=== PATIENT | female | born 1985 | race Caucasian/White ===

== ENCOUNTER → 2016-12-06 | Outpatient (CLI) | payer OTHER ==
--- NOTE | 2016-12-06 15:56 | US ---
December 06, [address] Morales, Thank you for requesting consultation and a ultrasound to evaluate anatomy for your patient, Mrs. Navas. As you know, Felipa is a 31 year old G 1, P 0 with a hughes da ting 20 w 4 d; ALAYNA of 04/24/17 by 6 week ultrasound. Her is complicated by migraine headac hes. She was headache free early on in the . She has had some mild headaches currently. S he is not on any headache prophylaxis protocols currently. She had reassuring NIPT and PreParent scr eening.. ULTRASOUND Number of fetuses: 1 Placental location: Anterior; no evidence of previa Placental cord insertion: Intraplacental presentation: Cephalic Cervix: 3.5 cm viewed transabdominally Maximum Vertical Pocket: 4.2 cm The adnexa were evaluated. No pathology was seen. Right ovary is visualized and seen as normal. It measures 2.5 x 1.6 x 2.5 cm.. Left ovary is visualized and seen as normal. It measures 3.4 x 1.3 x 2.3 cm.. MEASUREMENTS: Biparietal diameter: 47 mm 20 weeks, 2 days Head circumference: 177 mm 20 weeks, 2 days Abdominal circumference: 149 mm 20 weeks, 2 days Femur length: 30 mm 19 weeks, 2 days Humerus length: 30 mm 20 weeks, 0 days Transcerebellar diameter: 21 mm 20 weeks, 0 days Average ultrasound age: 20 weeks, 1 days Estimated weight: 314 gm weight percentile: 28% ANATOMY Supratentorial brain: Normal including views of the falx, cavum septum pellucidum and choroids Lateral Ventricle: Normal, measuring 6.8 mm Posterior fossa: Normal including the cerebellum and cisterna magna Spine: Normal Nuchal fold: 5.1 mm normal Face: Normal views of the lip and nose area Profile: Normal Palate: Normal appearance of the alveolar ridge Heart: Normal four chamber view and the outflow tracts are seen appropriately oriented and crossing. Normal appearance of the SVC/IVC, 3VV, tracheal view, aortic arch and ductal arch Heart Rate 152 bpm Diaphragm: Normal appearance without overt abnormality detected Stomach: Normal Umbilical cord insertion: Normal Right kidney: Normal Left kidney: Normal Bladder: Normal Number of cord vessels: Three Upper extremities: Normal Lower extremities: Normal Gender: Male IMPRESSION: 1. Intrauterine at 20 w 1 d, ultrasound is 04/24/17 with her established ALAYNA of 04/24/17. 2. Normal anatomical survey. 3. Cervical length is normal at 3.5 cm without evidence of insufficiency. 4. Migraines RECOMMENDATIONS: I was pleased to review today's ultrasound with your patient and her spouse. I reassured them that t he baby is growing appropriately with normal amniotic fluid volume. Our detailed review of the anatomy did not reveal any overt abnormalities. We reviewed headache prophylaxis and fluid hydration. If she is normotensive with a severe migraine lasting for days, she may safely take a single dose of a triptan to "break the cycle." If this is a progressive problem, then consultation with her neurologist is recommended. Future ultrasound and consultation is left to your clinical discretion. Thank you for allowing us the opportunity to evaluate your patient. Should you have any further ques tions or concerns please do not hesitate to contact me. Approximately 15 minutes were spent with the patient and 10 minutes were spent in face to face consu ltation. Aissatou Dixon MD Dental Surgeon Maternal Medicine Diagnosis Department of Obstetrics & Gynecology [facility]
--- NOTE | 2016-12-07 17:50 | US ---
Complete Obstetric Ultrasound dated December 06, 2016 Indication: Check growth and anatomy. The estimated gestational age by LMP is 20 weeks 1 day yieldin g an EDC of April 24, 2017. Comparison: October 14, 2016 Findings: Number: 1 Presentation: Vertex Placental location: Anterior. No previa Cervix: 3.5 cm transabdominally. HR: 152 bpm MVP: 4.2 cm Biometry: Biparietal diameter: 4.7 cm 20 weeks 2 days Head circumference: 17.7 cm 20 weeks 2 days Abdominal circumference: 14.9 cm 20 weeks 2 days Femur length: 3 cm 19 weeks 2 days Humerus length: 3 cm 20 weeks 0 days HC/AC: 1.19 (1.09 - 1.26) FL/BPD: 64% FL/AC: 20% Average ultrasound age: 20 weeks 1 day EDC based on today's average ultrasound age: April 24, 2017 Estimated weight is 314 +/- 46 gms. The estimated weight is at the 28 % based on previous dating. ANATOMY SURVEY: Supratentorial brain: Normal Posterior fossa: Normal Spine: Normal Nose and lips: Normal Facial profile: Normal Heart: Four chamber heart. Intact interventricular septum. Cardiac outflow tracts: Normal Stomach: Normal Umbilical cord insertion: Normal Kidneys: Normal, no pyelectasis Bladder: Normal Number of cord vessels: Three Upper extremities: Normal Lower extremities: Normal. No clubbing. Impression: 1. Living hughes . Size concordant with dates. The estimated gestational age by biometry is 20 weeks 1 day yielding an EDC of April 24, 2017. 2. Unremarkable anatomy. No anomalies detected. 3. Please see additional consultation by Dr. Aissatou Dixon.
== END ==
LOC: FIMAGING 14:24
PROVIDERS: ATTEND Obstetrics & Gynecology
DX: Z36 Encounter for antenatal screening of mother (principal); Z3A.20 20 weeks gestation of pregnancy

== ENCOUNTER 2017-05-02 11:40 | Inpatient (IN) | payer OTHER ==
[2017-05-02] MEDS ORDERED: OXYTOCIN/RINGERS LACTATE 1,000 ML IV PRN (13:12)
[2017-05-02] MEDS ORDERED: LR 1,000 ML IV PRN (13:12)
[2017-05-02] MEDS ORDERED: OLIVE OIL 118 ML BTL MISC PRN (13:12)
[2017-05-02] MEDS ORDERED: EPSOM SALT 454 GM TP PRN (13:12)
[2017-05-02] MEDS ORDERED: TERBUTALINE SULFATE 1 MG/ML VIAL IV PRN (13:12)
[2017-05-02 14:41] LABS: % IMMATURE GRANULYOCYTES 0.9 % (0.0-1.1); ADD DIFF? NO; ADD MORPH? NO; ADD SCAN? NO; ATYPICAL LYMPHOCYTE FLAG 0 (0-99); FRAGMENT RBC FLAG 10 (0-99); HEMATOCRIT 37.5 % (38.0-47.0); LEFT SHIFT FLG 10 (0-99); LIPEMIA HEMOLYSIS FLAG 90 (0-99); MEAN CELL HEMOGLOBIN 33.4 pg (27.9-34.1); MEAN CELL HEMOGLOBIN CONCENTR. 34.7 g/dL (32.4-36.7); MEAN CELL VOLUME 96.4 fL (81.5-99.8); MEAN PLATELET VOLUME 9.9 fL (8.7-11.7); PLATELET CLUMPS FLAG 0 (0-99); PLATELET COUNT 294 10^3/uL (150-400); RED BLOOD CELL COUNT 3.89 10^6/uL (4.18-5.33); RED CELL DISTRIBUTION WIDTH 13.3 % (11.5-15.2)
[2017-05-02] MEDS ORDERED: LR 500 ML IV PRN (19:05)
[2017-05-02] MEDS ORDERED: CALCIUM CARBONATE 500 MG CHEWABLE TAB PO PRN (19:13)
[2017-05-02] MEDS ORDERED: ACETAMINOPHEN 325 MG TAB PO PRN (19:13)
[2017-05-02] MEDS ORDERED: ZOLPIDEM TARTRATE 5 MG TAB PO PRN (19:13)
[2017-05-02] MEDS ORDERED: OXYTOCIN/RINGERS LACTATE 500 ML IV SCH (19:30)
--- NOTE | 2017-05-02 19:43 | GHP ---
[f rep st] PREOP HISTORY AND PHYSICAL DATE OF ADMISSION: 05/02/2017 CHIEF COMPLAINT: Oligohydramnios at 41-1/7 weeks' gestation. HPI: The patient is a 31-year-old G1, P0 female, who is at 41-1/7 weeks' gestation dated by a 6-week ultrasound, who presents to labor and delivery for induction of labor secondary to oligohydramnios that diagnosed on office visit today when she was undergoing her routine nonstress testing and showed oligohydramnios with her KARRI of 3. PAST MEDICAL HISTORY: Significant for migraines. PAST SURGICAL HISTORY: Negative. OB HISTORY: This is her first . CHIEF RADIATION THERAPIST HISTORY: Negative. FAMILY HISTORY: Noncontributory. ALLERGIES: Solu-Medrol and MRI contrast. PHYSICAL EXAMINATION: VITAL SIGNS: Her blood pressure is 133/74, pulse is 88, respiratory rate is 20, temperature is 37.3. GENERAL: She is in no apparent distress. ABDOMEN: Gravid, nontender. Ultrasound reveals vertex fetus. Her cervical exam was 1/50/and -2. Yin catheter was placed without complications. heart tones in the 130s with moderate variability and positive accelerations. LABS: Significant for blood type A-negative. Antibody screen negative. Rubella immune. RPR nonreactive. Hepatitis B surface antigen negative, HIV negative, gonorrhea and chlamydia negative. GBS was negative on 03/29/2017. ASSESSMENT: This is a 31-year-old G1, P0 female, who is at 41-1/7 weeks' gestation with oligohydramnios. Recommend proceeding to induction of labor secondary to oligohydramnios and potential increased risk of stillbirth with oligohydramnios. PLAN: I am beginning Pitocin at 10 p.m. and discussed with the patient we will probably plan on rupture of membranes between 2-3 a.m. All questions were answered and the patient agrees with this plan. /[id number]/MODL MTDD
[2017-05-03] MEDS ORDERED: OLIVE OIL 118 ML BTL ONE (02:03)
[2017-05-03] MEDS ORDERED: LIDOCAINE 1% 300 MG/30 ML SDV ONE (02:03)
[2017-05-03] MEDS ORDERED: OXYTOCIN 10 UNIT/ML VIAL ONE (02:04)
[2017-05-03] MEDS ORDERED: AMMONIA AROMATIC 1 EACH AMP IH ONE (02:04)
[2017-05-03] MEDS ORDERED: TERBUTALINE SULFATE 1 MG/ML VIAL ONE (02:04)
[2017-05-03] MEDS ORDERED: MISOPROSTOL 200 MCG TAB ONE (02:05)
--- NOTE | 2017-05-03 02:55 | OBPROG ---
OBG Labor Progress Note Assessment/Plan: Assessment: 31 yo @ 41 1/7, IOL for oligo, in active labor Plan: 05/03/17 02:53 FWB reassuring. GBS neg. Arom at next check. Expect . Subjective: 31 yo @ 41 1/7, IOL for oligo, in active labor Objective: 05/02/17 14:02 Patient ABO/Rh A NEGATIVE 05/02/17 14:02 VSS - SVE Dilation (cm): 5 Effacement (%): 90 Station: -1 Joseph Current Contraction Pattern: Regular FHR (bpm): 130 FHR Pattern Variability: Moderate FHR Category: 2 Oxytocin Orders Assessment - Pre-Induction/Augmentation Assessment Gestational Age: 41 week(s) and 1 day(s) ICD10 Worksheet Patient Problems: Problems Problem Status Onset Oligohydramnios Acute
[2017-05-03] MEDS ORDERED: ONDANSETRON 4 MG/2 ML VIAL ONE ×2 (03:31→08:52)
[2017-05-03] MEDS ORDERED: ONDANSETRON 4 MG/2 ML VIAL IVP ONE ×2 (05:00→09:00)
--- NOTE | 2017-05-03 07:15 | OBPROG ---
OBG Labor Progress Note Assessment/Plan: Assessment: 31 yo @ 41 1/7, IOL for oligo, in active labor Plan: FWB reassuring. GBS neg. Arom clear. Expect . 05/03/17 07:14 Subjective: 31 yo @ 41 1/7, IOL for oligo, in active labor Objective: 05/02/17 14:02 Patient ABO/Rh A NEGATIVE 05/02/17 14:02 vss - SVE Dilation (cm): 7 Effacement (%): 90 Station: -1 Joseph Current Contraction Pattern: Regular FHR (bpm): 140 FHR Pattern Variability: Moderate FHR Category: 2 Membranes: AROM Amniotic Fluid Color: Clear - Procedures Non-surgical Procedures: Amniotomy Oxytocin Orders Assessment - Pre-Induction/Augmentation Assessment Gestational Age: 41 week(s) and 1 day(s) ICD10 Worksheet Patient Problems: Problems Problem Status Onset Oligohydramnios Acute
--- NOTE | 2017-05-03 10:36 | OBPROG ---
OBG Labor Progress Note Assessment/Plan: Assessment: 31 yo @ 41 1/7, IOL for oligo, in active labor Plan: FWB reassuring. GBS neg. Arom clear. Expect . No cervical change since exam at 6 am, recommend epidural, then IUPC and then titrate pitocin to adequacy. 05/03/17 10:35 Subjective: 31 yo @ 41 1/7, IOL for oligo, in active labor Objective: 05/02/17 14:02 Patient ABO/Rh A NEGATIVE 05/02/17 14:02 vss - SVE Dilation (cm): 5 Effacement (%): 90 Station: 0 Joseph Current Contraction Pattern: Regular FHR (bpm): 140 FHR Pattern Variability: Moderate FHR Category: 2 Membranes: AROM Amniotic Fluid Color: Clear - Procedures Non-surgical Procedures: Amniotomy Oxytocin Orders Assessment - Pre-Induction/Augmentation Assessment Gestational Age: 41 week(s) and 1 day(s) ICD10 Worksheet Patient Problems: Problems Problem Status Onset Oligohydramnios Acute
[2017-05-03] MEDS ORDERED: fentaNYL 2MCG/ML/BUP 0.1% RTU 100 ML BAG EP ONE (10:42)
[2017-05-03] MEDS ORDERED: BUPIVACAINE 0.25% 30 ML SDV ONE (10:43)
[2017-05-03] MEDS ORDERED: PHENYLEPHRINE HCL 100 MCG/ML SYR ONE (10:43)
[2017-05-03] MEDS ORDERED: fentaNYL 100 MCG/2 ML INJ ONE ×3 (10:44→21:24)
--- NOTE | 2017-05-03 11:46 | OBPROG ---
OBG Labor Progress Note Assessment/Plan: Assessment: 31 yo @ 41 1/7, IOL for oligo, in active labor Plan: FWB reassuring. GBS neg. Arom clear. Expect . Now dilating with epidural. Discussed with the patient that i will be transferring her care over to Dr Obrien. 05/03/17 11:44 Subjective: 31 yo @ 41 1/7, IOL for oligo, in active labor Objective: 05/02/17 14:02 Patient ABO/Rh A NEGATIVE 05/02/17 14:02 vss - SVE Dilation (cm): 8 Effacement (%): 90 Station: -1 Joseph Current Contraction Pattern: Regular FHR (bpm): 120 FHR Pattern Variability: Moderate FHR Category: 2 Membranes: AROM Amniotic Fluid Color: Clear - Procedures Non-surgical Procedures: Amniotomy Oxytocin Orders Assessment - Pre-Induction/Augmentation Assessment Gestational Age: 41 week(s) and 1 day(s) ICD10 Worksheet Patient Problems: Problems Problem Status Onset Oligohydramnios Acute
--- NOTE | 2017-05-03 12:36 | PREANESOB ---
Obstetric Pre-Anesthesia Info - General Info Proposed Procedure: Labor and delivery with pitocin. : 1 Para: 0 WBD: 41 - Info Status: Postmature Monitors: External FHR Baseline (bpm): 135 FHR Pattern: Reassuring - Labor Status Cervical Dilation per last OB SVE: 7 Station per last OB SVE: -1 Pitocin: In Use Indications for Labor Analgesia: Induction of Labor, Pain Control Labor Epidural: Proposed Anesthesia ROS: History of migraines. S/P oral surgery. Allergies/Adverse Reactions: Allergy/AdvReac Type Severity Reaction Status Date / Time methylprednisolone Allergy Severe Verified 05/02/17 19:29 Iodine and Iodide Containing Allergy Rash Verified 05/02/17 19:29 Produc solumedrol Allergy Severe Anaphylaxis Uncoded 05/02/17 19:29 MRI Contrast Allergy Rash Uncoded 05/02/17 12:02 Home Medications: Medication Instructions Recorded Docosahexanoic Acid [Dha] 1 tab PO DAILY 05/02/17 Docosahexanoic Acid [ Dha] 1 tab PO DAILY 05/02/17 Magnesium Oxide [Magnesium] 400 mg PO 05/02/17 Visit Medications: Generic Name Dose Route Start Last Admin Trade Name Freq PRN Reason Stop Dose Admin Acetaminophen 650 mg 05/02/17 19:13 Tylenol PO 10/29/17 19:12 Q6HRS PRN Pain, Mild/Fever, Can Take PO Calcium Carbonate 500 mg 05/02/17 19:13 Tums PO 10/29/17 19:12 TID PRN Indigestion Lactated Ringer's 1,000 mls @ 0 mls/hr 05/02/17 13:12 Lr IV 10/29/17 13:11 PRN PRN SEE PROTOCOL CONDITIONS Protocol Per Protocol Oxytocin/Lactated Ringer's 1,000 mls @ 150 mls/hr 05/02/17 13:12 Pitocin 20 Units/Lr (Premix) IV PRN PRN Post- bleeding Lactated Ringer's 500 mls @ 500 mls/hr 05/02/17 19:05 Lr IV PRN PRN Maternal Hypotension Oxytocin/Lactated Ringer's 500 mls @ 0 mls/hr 05/02/17 19:30 Pitocin 30 Units/Lr (Premix) IV 10/29/17 19:29 CONT LEATHA Protocol Per Protocol Ibuprofen 600 mg 05/02/17 13:12 Motrin PO 10/29/17 13:11 Q6HRS PRN post , inflammation Magnesium Sulfate 454 gm 05/02/17 13:12 Epsom Salt TP 10/29/17 13:11 PRN PRN perineal discomfort [place] Oil 118 ml 05/02/17 13:12 Sweet Oil MISC 10/29/17 13:11 ONCE PRN preneal massage Terbutaline Sulfate 0.25 mg 05/02/17 13:12 Brethine IV 10/29/17 13:11 ONCE PRN Tachysystole Zolpidem Tartrate 5 mg 05/02/17 19:13 Ambien PO 10/29/17 19:12 HS PRN Sleep/Insomnia Discontinued Medications Generic Name Dose Route Start Last Admin Trade Name Freq PRN Reason Stop Dose Admin Ammonia (Aromatic Spirit) Confirm 05/03/17 02:04 Ammonia Aromatic Administered 05/03/17 02:05 Dose 1 each IH .STK-MED ONE Bupivacaine HCl Confirm 05/03/17 10:43 Sensorcaine 0.25% Sdv Administered 05/03/17 10:44 Dose 30 ml .ROUTE .STK-MED ONE Ephedrine Sulfate Confirm 05/03/17 02:04 Ephedrine Sulfate Administered 05/03/17 02:05 Dose 50 mg .ROUTE .STK-MED ONE Fentanyl Confirm 05/03/17 10:44 Sublimaze Administered 05/03/17 10:45 Dose 100 mcg .ROUTE .STK-MED ONE Fentanyl Confirm 05/03/17 11:02 Sublimaze Administered 05/03/17 11:03 Dose 100 mcg .ROUTE .STK-MED ONE Fentanyl/Bupivacaine HCl Confirm 05/03/17 10:42 Fentanyl/Bupivacaine/Ns 2 Mcg/Ml 0.1% (Premix Administered 05/03/17 10:43 Dose 100 ml EP .STK-MED ONE Lidocaine HCl Confirm 05/03/17 02:03 Lidocaine Hcl 1% Administered 05/03/17 02:04 Dose 300 mg .ROUTE .STK-MED ONE Misoprostol Confirm 05/03/17 02:05 Cytotec Administered 05/03/17 02:06 Dose 1,000 mcg .ROUTE .STK-MED ONE [place] Oil Confirm 05/03/17 02:03 Sweet Oil Administered 05/03/17 02:04 Dose 118 ml .ROUTE .STK-MED ONE Ondansetron HCl Confirm 05/03/17 03:31 Zofran Administered 05/03/17 03:32 Dose 4 mg .ROUTE .STK-MED ONE Ondansetron HCl 4 mg 05/03/17 05:00 05/03/17 03:35 Zofran IVP 05/03/17 05:01 4 mg ONCE ONE Administration Ondansetron HCl 4 mg 05/03/17 09:00 05/03/17 08:59 Zofran IVP 05/03/17 09:01 4 mg ONCE ONE Administration Ondansetron HCl Confirm 05/03/17 08:52 Zofran Administered 05/03/17 08:53 Dose 4 mg .ROUTE .STK-MED ONE Oxytocin Confirm 05/03/17 02:04 Pitocin Administered 05/03/17 02:05 Dose 40 unit .ROUTE .STK-MED ONE Phenylephrine HCl Confirm 05/03/17 10:43 Neosynephrine Administered 05/03/17 10:44 Dose 1,000 mcg .ROUTE .STK-MED ONE Terbutaline Sulfate Confirm 05/03/17 02:04 Brethine Administered 05/03/17 02:05 Dose 1 mg .ROUTE .STK-MED ONE - Anesthesia History Response to Local Anesthetics: Normal Anesthesia & Operative History: No Prior Problems Family Anesthesia History: Negative - Social History Substance Use/Abuse: Denies - Focused Exam Blood Pressure: 109/64 Heart Rate: 91 Height/Weight (Nursing): Height 167.64 cm Weight 68.946 kg Physical Exam: Within normal limits. ASA Status: II Labs: 05/02/17 14:02 Patient ABO/Rh A NEGATIVE 05/02/17 14:02 - Plan Anesthetic Plan: CSE Consent Signed and on Chart: Yes Patient/Guardian Understands and Agrees to Plan: Yes Urgent/Emergent Case: Sabrina vieira completed preop but documented later for safe timely pt care
[2017-05-03] MEDS ORDERED: PHENYLEPHRINE HCL 100 MCG/ML SYR IVP PRN ×2 (12:40→20:57)
[2017-05-03] MEDS ORDERED: ONDANSETRON 4 MG/2 ML VIAL IVP PRN ×2 (12:40→20:57)
--- NOTE | 2017-05-03 12:45 | POSTANESTH ---
Post Anesthetic Evaluation Cardiovascular Status: Normal, Stable Respiratory Status: Normal, Stable, Similar to Pre-op Cond. Level of Consciousness/Mental Status: Can Participate in Eval, Alert and Oriented, Moderately Sleepy Pain Control: Adequate, Prn Tx Ordered Nausea/Vomiting Control: Adequate, Prn Tx Ordered Complications Possibly Related to Anesthesia: None Noted (Tolerated CSE well, stable, comfortable.)
[2017-05-03] MEDS ORDERED: LR 500 ML IV SCH (13:00)
[2017-05-03] MEDS ORDERED: fentaNYL 2MCG/ML/BUP 0.1% RTU 100 ML EP SCH (13:00)
--- NOTE | 2017-05-03 13:15 | OBPROG ---
OBG Labor Progress Note Assessment/Plan: Assessment: G1 at 41 11/30 IOL for oligo s/p FB, AROM On pit with IUPC 3 lates--resolved with position change LOP presentation Plan: Continue pitocin peanut ball Continuous monitoring, position changes, fluids, O2 prn 05/03/17 13:14 Subjective: comfortable with epidural Objective: 05/02/17 14:02 Patient ABO/Rh A NEGATIVE 05/02/17 14:02 Temp Pulse Resp BP Pulse Ox 91 109/64 05/03/17 12:39 05/03/17 12:39 - SVE Dilation (cm): 9 Effacement (%): 100 Station: 0 Joseph FHR (bpm): 130 FHR Pattern Variability: Moderate FHR Category: 2 Membranes: AROM Amniotic Fluid Color: Clear - Procedures Non-surgical Procedures: Amniotomy Oxytocin Orders Assessment - Pre-Induction/Augmentation Assessment Gestational Age: 41 week(s) and 1 day(s) ICD10 Worksheet Patient Problems: Problems Problem Status Onset Oligohydramnios Acute
[2017-05-03] MEDS ORDERED: D5W LR 500 ML IV SCH (13:30)
--- NOTE | 2017-05-03 15:45 | OBPROG ---
OBG Labor Progress Note Assessment/Plan: Assessment: G1 at 41 11/30 IOL for oligo s/p FB, AROM On pit with IUPC Intermittent lates--overall reassuring with mod variability Inadequate contractions--pit at 14 mu/min LOP presentation Plan: Continue pitocin Decrease epidural infusion as she is completely numb, no urge to push Continuous monitoring, position changes, fluids, O2 prn Plan pushing 1 hour Reviewed with pt she is now complete but minimal descent since last check 2 hours ago. Will attempt pushing but discussed possible risk of C/S for FTD. Also discussed can try turning baby to OA if no progress with pushing 05/03/17 13:14 05/03/17 15:44 Subjective: numb Objective: 05/02/17 14:02 Patient ABO/Rh A NEGATIVE 05/02/17 14:02 Temp Pulse Resp BP Pulse Ox 91 109/64 05/03/17 12:39 05/03/17 12:39 - SVE Dilation (cm): 10 Effacement (%): 100 Station: 0 Jsoeph FHR (bpm): 150 FHR Pattern Variability: Moderate FHR Category: 2 Membranes: AROM Amniotic Fluid Color: Clear - Procedures Non-surgical Procedures: Amniotomy Oxytocin Orders Assessment - Pre-Induction/Augmentation Assessment Gestational Age: 41 week(s) and 1 day(s) ICD10 Worksheet Patient Problems: Problems Problem Status Onset Oligohydramnios Acute
[2017-05-03] MEDS ORDERED: ACETAMINOPHEN 500 MG TAB PO ONE (16:30)
[2017-05-03] MEDS ORDERED: GENTAMICIN PHARMACY TO DOSE MISC SCH (16:45)
[2017-05-03] MEDS ORDERED: AMPICILLIN SODIUM 2 GM in NS 100 ML IV SCH ×2 (17:00→23:00)
[2017-05-03] MEDS: D5W IV SCH (17:34)
[2017-05-03] MEDS: GENTAMICIN SULFATE IV SCH (17:34)
--- NOTE | 2017-05-03 18:41 | OBPROG ---
OBG Labor Progress Note Assessment/Plan: Assessment: G1 at 41 11/30 IOL for oligo s/p FB, AROM On pit with IUPC, pit at 20 mu/min Intermittent decels--overall reassuring with mod variability and accels Chorio (based on rising FHR baseline and temp = 38.1). s/p tylenol, amp/gent LOP presentation Pushing x 1 hr 40 minutes with minimal descent Plan: Continue pitocin Continue pushing x 20 minutes. Discussed at 2 hr with no descent options include C/S for FTD vs trial of turning baby to OA presentation. If able to turn to OA can push for add'l 20-30 minutes, and if no descent then would recommend C/S. She agrees with plan, would like to do trial of turning. Subjective: a lot of back pain with contractions Objective: 05/02/17 14:02 Patient ABO/Rh A NEGATIVE 05/02/17 14:02 Temp Pulse Resp BP Pulse Ox 91 109/64 05/03/17 12:39 05/03/17 12:39 - SVE Dilation (cm): 10 Effacement (%): 100 Station: 0 Joseph FHR (bpm): 150 FHR Pattern Variability: Moderate FHR Category: 2 Membranes: AROM Amniotic Fluid Color: Clear - Procedures Non-surgical Procedures: Amniotomy Oxytocin Orders Assessment - Pre-Induction/Augmentation Assessment Gestational Age: 41 week(s) and 1 day(s) ICD10 Worksheet Patient Problems: Problems Problem Status Onset Oligohydramnios Acute
--- NOTE | 2017-05-03 19:25 | OBPROG ---
OBG Labor Progress Note Assessment/Plan: Assessment: G1 at 41 11/30 IOL for oligo s/p FB, AROM, pit Intermittent decels--overall reassuring with mod variability and accels Chorio (based on rising FHR baseline and temp = 38.1). s/p tylenol, amp/gent. Now afebrile LOP presentation Pushing x 2 hours with no significant decent. Attempted to turn to OA without sucess Plan: Failure to descend Recommend C/S--parents agree. Reviewed risks and benefits in detail. Consents signed. Subjective: pushing Objective: 05/02/17 14:02 Patient ABO/Rh A NEGATIVE 05/02/17 14:02 Temp Pulse Resp BP Pulse Ox 91 109/64 05/03/17 12:39 05/03/17 12:39 - SVE Dilation (cm): 10 Effacement (%): 100 Station: 0 Joseph FHR (bpm): 150 FHR Pattern Variability: Moderate FHR Category: 2 Membranes: AROM Amniotic Fluid Color: Clear - Procedures Non-surgical Procedures: Amniotomy Oxytocin Orders Assessment - Pre-Induction/Augmentation Assessment Gestational Age: 41 week(s) and 1 day(s) ICD10 Worksheet Patient Problems: Problems Problem Status Onset Oligohydramnios Acute
[2017-05-03] MEDS ORDERED: CLINDAMYCIN 900 MG/DEXTROSE 50 ML IV ONE (19:30)
--- NOTE | 2017-05-03 19:42 | PREANESOB ---
Obstetric Pre-Anesthesia Info - General Info Proposed Procedure: Section : 1 Para: 0 - Info Status: Full Term FHR Baseline (bpm): 135 - Labor Status Cervical Dilation per last OB SVE: 10 Station per last OB SVE: 0 Labor Epidural: Yes (Functioning well, B T4 level symmetric) Anesthesia Allergies/Adverse Reactions: Allergy/AdvReac Type Severity Reaction Status Date / Time methylprednisolone Allergy Severe Verified 05/02/17 19:29 Iodine and Iodide Containing Allergy Rash Verified 05/02/17 19:29 Produc solumedrol Allergy Severe Anaphylaxis Uncoded 05/02/17 19:29 MRI Contrast Allergy Rash Uncoded 05/02/17 12:02 Home Medications: Medication Instructions Recorded Docosahexanoic Acid [Dha] 1 tab PO DAILY 05/02/17 Docosahexanoic Acid [ Dha] 1 tab PO DAILY 05/02/17 Magnesium Oxide [Magnesium] 400 mg PO 05/02/17 Visit Medications: Generic Name Dose Route Start Last Admin Trade Name Freq PRN Reason Stop Dose Admin Acetaminophen 650 mg 05/02/17 19:13 Tylenol PO 10/29/17 19:12 Q6HRS PRN Pain, Mild/Fever, Can Take PO Calcium Carbonate 500 mg 05/02/17 19:13 Tums PO 10/29/17 19:12 TID PRN Indigestion Diphenhydramine HCl 25 - 50 mg 05/03/17 12:40 Benadryl Injection IVP 10/30/17 12:39 Q6HRS PRN Itching Gentamicin Sulfate 1 each 05/03/17 16:45 Gentamicin Pharmacy To Dose MISC 10/30/17 16:44 AD LEATHA Lactated Ringer's 1,000 mls @ 0 mls/hr 05/02/17 13:12 Lr IV 10/29/17 13:11 PRN PRN SEE PROTOCOL CONDITIONS Protocol Per Protocol Oxytocin/Lactated Ringer's 1,000 mls @ 150 mls/hr 05/02/17 13:12 Pitocin 20 Units/Lr (Premix) IV PRN PRN Post- bleeding Lactated Ringer's 500 mls @ 500 mls/hr 05/02/17 19:05 Lr IV PRN PRN Maternal Hypotension Oxytocin/Lactated Ringer's 500 mls @ 0 mls/hr 05/02/17 19:30 Pitocin 30 Units/Lr (Premix) IV 10/29/17 19:29 CONT LEATHA Protocol Per Protocol Fentanyl/Bupivacaine HCl 100 mls @ 0 mls/hr 05/03/17 13:00 Fentanyl/Bupivacaine/Ns 2 Mcg/Ml 0.1% (Premix EP 05/13/17 12:59 CONT LEATHA Protocol As Directed Lactated Ringer's 500 mls @ 0 mls/hr 05/03/17 13:00 Lr IV 10/30/17 12:59 CONT LEATHA As Directed Dextrose/Lactated Ringer's 500 mls @ 1,000 mls/hr 05/03/17 13:30 D5w Lr IV 10/30/17 13:29 CONT LEATHA Ampicillin Sodium 2 gm/ Sodium 110 mls @ 220 mls/hr 05/03/17 17:00 05/03/17 16:47 Chloride IV 06/02/17 16:59 110 mls Q6H LEATHA Administration Gentamicin Sulfate 104 mg/ 102.6 mls @ 102.6 mls/hr 05/03/17 18:00 05/03/17 17:34 Dextrose IV 06/02/17 17:59 102.6 mls Q8H LEATHA Administration Clindamycin Phosphate/Dextrose 50 mls @ 100 mls/hr 05/03/17 19:30 Cleocin 900 Mg (Premix) IV 05/03/17 19:59 ONCE ONE Ibuprofen 600 mg 05/02/17 13:12 Motrin PO 10/29/17 13:11 Q6HRS PRN post , inflammation Magnesium Sulfate 454 gm 05/02/17 13:12 Epsom Salt TP 10/29/17 13:11 PRN PRN perineal discomfort [place] Oil 118 ml 05/02/17 13:12 Sweet Oil MISC 10/29/17 13:11 ONCE PRN preneal massage Ondansetron HCl 4 mg 05/03/17 12:40 Zofran IVP 10/30/17 12:39 Q4HRS PRN Nausea/Vomiting, Can't Take PO Phenylephrine HCl 100 mcg 05/03/17 12:40 Neosynephrine IVP 10/30/17 12:39 .Q2M PRN Hypotension Terbutaline Sulfate 0.25 mg 05/02/17 13:12 Brethine IV 10/29/17 13:11 ONCE PRN Tachysystole Zolpidem Tartrate 5 mg 05/02/17 19:13 Ambien PO 10/29/17 19:12 HS PRN Sleep/Insomnia Discontinued Medications Generic Name Dose Route Start Last Admin Trade Name Kristen PRN Reason Stop Dose Admin Acetaminophen 1,000 mg 05/03/17 16:30 05/03/17 16:38 Tylenol PO 05/03/17 16:31 1,000 mg ONCE ONE Administration Ammonia (Aromatic Spirit) Confirm 05/03/17 02:04 Ammonia Aromatic Administered 05/03/17 02:05 Dose 1 each IH .STK-MED ONE Bupivacaine HCl Confirm 05/03/17 10:43 Sensorcaine 0.25% Sdv Administered 05/03/17 10:44 Dose 30 ml .ROUTE .STK-MED ONE Ephedrine Sulfate Confirm 05/03/17 02:04 Ephedrine Sulfate Administered 05/03/17 02:05 Dose 50 mg .ROUTE .STK-MED ONE Fentanyl Confirm 05/03/17 10:44 Sublimaze Administered 05/03/17 10:45 Dose 100 mcg .ROUTE .STK-MED ONE Fentanyl Confirm 05/03/17 11:02 Sublimaze Administered 05/03/17 11:03 Dose 100 mcg .ROUTE .STK-MED ONE Fentanyl/Bupivacaine HCl Confirm 05/03/17 10:42 Fentanyl/Bupivacaine/Ns 2 Mcg/Ml 0.1% (Premix Administered 05/03/17 10:43 Dose 100 ml EP .STK-MED ONE Ampicillin Sodium 2 gm/ Sodium 110 mls @ 220 mls/hr 05/03/17 23:00 Chloride IV 06/02/17 22:59 Q6H [facility] Lidocaine HCl Confirm 05/03/17 02:03 Lidocaine Hcl 1% Administered 05/03/17 02:04 Dose 300 mg .ROUTE .STK-MED ONE Misoprostol Confirm 05/03/17 02:05 Cytotec Administered 05/03/17 02:06 Dose 1,000 mcg .ROUTE .STK-MED ONE [place] Oil Confirm 05/03/17 02:03 Sweet Oil Administered 05/03/17 02:04 Dose 118 ml .ROUTE .STK-MED ONE Ondansetron HCl Confirm 05/03/17 03:31 Zofran Administered 05/03/17 03:32 Dose 4 mg .ROUTE .STK-MED ONE Ondansetron HCl 4 mg 05/03/17 05:00 05/03/17 03:35 Zofran IVP 05/03/17 05:01 4 mg ONCE ONE Administration Ondansetron HCl 4 mg 05/03/17 09:00 05/03/17 08:59 Zofran IVP 05/03/17 09:01 4 mg ONCE ONE Administration Ondansetron HCl Confirm 05/03/17 08:52 Zofran Administered 05/03/17 08:53 Dose 4 mg .ROUTE .STK-MED ONE Oxytocin Confirm 05/03/17 02:04 Pitocin Administered 05/03/17 02:05 Dose 40 unit .ROUTE .STK-MED ONE Phenylephrine HCl Confirm 05/03/17 10:43 Neosynephrine Administered 05/03/17 10:44 Dose 1,000 mcg .ROUTE .STK-MED ONE Terbutaline Sulfate Confirm 05/03/17 02:04 Brethine Administered 05/03/17 02:05 Dose 1 mg .ROUTE .STK-MED ONE - Anesthesia History Response to Local Anesthetics: Normal Anesthesia & Operative History: No Prior Problems Family Anesthesia History: Negative - Social History Substance Use/Abuse: Denies - Focused Exam Latest Vital Signs (Nursing): Temp Pulse Resp BP Pulse Ox 91 109/64 05/03/17 12:39 05/03/17 12:39 Height/Weight (Nursing): Height 167.64 cm Weight 68.946 kg Weight: 69 kg Height: 168 cm Respiratory: chest non-tender, lungs clear Cardiovascular: normal peripheral pulses, regular rate, rhythm ASA Status: II Labs: 05/02/17 14:02 Patient ABO/Rh A NEGATIVE 05/02/17 14:02 - Plan Anesthetic Plan: Plan to dose TERRI with lidocaine, backup general anesthesia Consent Signed and on Chart: Yes Patient/Guardian Understands and Agrees to Plan: Yes
[2017-05-03] MEDS ORDERED: FAMOTIDINE 20 MG/NACL 50 ML IV ONE ×2 (19:43→20:00)
[2017-05-03] MEDS ORDERED: CITRIC ACID/SODIUM CITRATE 30 ML UDCUP PO ONE (19:44)
[2017-05-03] MEDS ORDERED: METHYLERGONOVINE MAL 0.2 MG/ML INJ ONE (20:21)
[2017-05-03] MEDS ORDERED: morphINE PF 5 MG/10 ML INJ ONE (20:48)
[2017-05-03] MEDS ORDERED: HYDROmorphONE/DILAUDID 1 MG/ML SYR IVP PRN (20:57)
[2017-05-03] MEDS ORDERED: NALOXONE HCL 0.4 MG/ML INJ IVP PRN (20:57)
[2017-05-03] MEDS ORDERED: LABETALOL HCL 5 MG/ML 20 ML MDV ONE (21:04)
[2017-05-03] MEDS ORDERED: ESMOLOL HCL 100 MG/10 ML VIAL IV ONE (21:04)
--- NOTE | 2017-05-03 21:19 | POSTANESTH ---
Post Anesthetic Evaluation Cardiovascular Status: Normal, Stable, Similar to Pre-Op Cond Respiratory Status: Normal, Stable, Similar to Pre-op Cond. Level of Consciousness/Mental Status: Can Participate in Eval, Alert and Oriented Pain Control: Adequate, Prn Tx Ordered Nausea/Vomiting Control: Adequate, Prn Tx Ordered Complications Possibly Related to Anesthesia: None Noted
[2017-05-03] MEDS ORDERED: IBUPROFEN 600 MG TAB PO PRN (21:24)
[2017-05-03] MEDS ORDERED: SIMETHICONE 80 MG TAB CHEW PO PRN (21:24)
[2017-05-03] MEDS ORDERED: ACETAMINOPHEN 325 MG TAB PO PRN (21:24)
[2017-05-03] MEDS: fentaNYL 100 MCG/2 ML INJ IVP PRN ×2 (21:26→21:51)
[2017-05-03] MEDS ORDERED: CLINDAMYCIN 900 MG in NS 100 ML IV ONE (21:26)
[2017-05-03] MEDS ORDERED: OXYTOCIN/RINGERS LACTATE 1,000 ML IV SCH (21:30)
--- NOTE | 2017-05-03 21:32 | OBDEL ---
Info Type: Primary GBS+: No Indications for Delivery: Oligohydramnios (41 weeks) Vaginal Delivery - Labor and Delivery Non-surgical Procedures: Amniotomy Operative Report - Delivery Pre-op Diagnoses: Failure to descend. Chorioamnionitis Post-op Diagnoses: Failure to descend. Chorioamnionitis Nulliparous Prior to Delivery: Yes Presentation at Delivery: Vertex (OP) Procedure: Unscheduled, Low Transverse Surgeon: Tracey Obrien Field Engineer: Mony Cheung Anesthesiologist: Juan M Boone [employer] Analgesia/Anesthesia Type: Epidural Complications: None Findings: Normal Specimen(s)/Path: Placenta EBL: 950 [place] [address] [place] Delivery Date: 05/03/17 ALAYNA: 04/25/17 Gestational Age: 41 week(s) and 1 day(s) Sex of : Male Weight (gm): 3912.234 g Score (1 Min): 8 Score (5 Min): 9 ICD10 Worksheet Patient Problems: Problems Problem Status Onset Delivered by section Acute Oligohydramnios Acute - ICD10 Problem Qualifiers (1) Delivered by section
--- NOTE | 2017-05-03 21:33 | OBGCSDC ---
General Delivery Information - General Info : 1 Para: 1 Delivery Physician/CNM: Tracey Obrien Business Relations Manager: Mony Cheung Admission Date: 05/02/17 Labs: Patient ABO/Rh A NEGATIVE 05/02/17 14:02 Hct 37.5 % (38.0-47.0) L 05/02/17 14:02 Vaginal - Diagnosis Presentation at Delivery: Vertex (OP) - Operations/Procedures Non-surgical Procedures: Amniotomy L&D Analgesia/Anesthesia Type: Epidural - Delivery Number of Prior Sections: 0 Indications for Current Section: Arrest of Descent Type: Primary Non-surgical Procedures: Amniotomy Surgical Procedures: Unscheduled, Low Transverse Intra-op Complications: None EBL: 950 L&D Analgesia/Anesthesia Type: Epidural - Hospital Course Antepartum: IOL at 41w0d for oligohydramnios Intrapartum: FB --> pitocin --> AROM. Pushed x 2 hours with no descent. OP presentation, unable to successfully turn to OA. Temp to 38.1 and intermittent maternal tachycardia, amp/gent started for presumed clinda : Gent/clinda x 24 hours [place] [facility] Delivery Date: 05/03/17 ALAYNA: 04/25/17 Gestational Age: 41 week(s) and 1 day(s) Sex of : Male [place] Weight (gm): 3912.234 g Score (1 Min): 8 Score (5 Min): 9
[2017-05-03] MEDS ORDERED: KETOROLAC 30 MG/1 ML SDV ONE (21:36)
[2017-05-03] MEDS: KETOROLAC 30 MG/1 ML SDV IVP SCH (21:39)
[2017-05-04] MEDS: GENTAMICIN SULFATE IV SCH ×3 (02:23→18:43)
[2017-05-04] MEDS: D5W IV SCH ×3 (02:23→18:43)
[2017-05-04] MEDS: KETOROLAC 30 MG/1 ML SDV IVP SCH ×3 (03:39→16:24)
[2017-05-04] MEDS: CLINDAMYCIN 900 MG in NS 100 ML IV SCH ×3 (03:56→12:24)
--- NOTE | 2017-05-04 06:48 | GOP ---
[f rep st] OPERATIVE REPORT DATE OF OPERATION: 05/03/2017 SURGEON: Tracey Obrien MD VENDING MACHINE TECHNICIAN: Mony Cheung DO. ANESTHESIA: Epidural. ANESTHESIOLOGIST: Dr. Juan M Boone. PREOPERATIVE DIAGNOSIS: 1. 41-1/7 weeks gestational age. 2. Failure to descend. 3. Chorioamnionitis. 4. Occiput-posterior presentation. POSTOPERATIVE DIAGNOSIS: 1. 41-1/7 weeks gestational age. 2. Failure to descend. 3. Chorioamnionitis. 4. Occiput-posterior presentation. PROCEDURE PERFORMED: Primary low transverse section. FINDINGS: Viable male , in LOP presentation, 8 pounds 10 ounces, with Apgars of 8 and 9. Normal uterus, tubes, and ovaries. Normal placenta. SPECIMENS: Placenta to Pathology for chorioamnionitis. ESTIMATED BLOOD LOSS: 950 mL. INDICATIONS: Patient is a 31-year-old, 1, para 0, at 41 weeks and 1/7 days, who was admitted yesterday for induction of labor for oligohydramnios with an KARRI of less than 5 cm. Her labor induction was initially started with a Yin bulb, followed by Pitocin and AROM. She was complete at 3:30 p.m. this afternoon. She labored down for 1 hour 15 minutes and then proceeded to push for over 2 hours. She did not make any progress with pushing. and the fetus remained at 0 station. The baby was noted to be OP and an attempt was made to turn, that was unsuccessful. At this time, it was recommended to proceed with section for failure to descend. A few hours before the section, she also developed a fever to 38.1, and she was started on ampicillin and gentamicin for presumed chorioamnionitis. DESCRIPTION OF PROCEDURE: The patient was brought to the operating room and a time-out was performed. She was prepped and draped in the normal sterile fashion, in the supine position with a leftward tilt. She was confirmed to have adequate anesthesia. Clindamycin was given prior to skin incision, as she has already received ampicillin and gentamycin. A final time-out was performed. A Pfannenstiel incision was made with a knife and carried down to the fascia with the Bovie. The fascia was incised in the midline and extended laterally sharply. The fascia was tented up superiorly and dissected off the underlying rectus muscles. The same was performed inferiorly. The rectus muscles were and the peritoneum was bluntly entered and stretched. The bladder blade was placed and a bladder flap was made sharply and bluntly. The bladder blade was replaced. A low transverse incision was made with a scalpel and was stretched bluntly. The vertex was grasped and was easily delivered. Delayed cord clamping was performed for 30 seconds. The baby was handed off to the awaiting provider. The placenta was removed intact. The uterus was exteriorized and cleared of all clots and debris. A boggy uterine tone was noted and IV Pitocin was started. The uterus continued to be boggy and Methergine 0.2 mg IM was given. The incision was closed with a running, locked stitch of 0 Monocryl. The same stitch was used for a second imbricating layer. Hemostasis was noted at this time. Uterine tone was excellent at this time. The uterus was replaced in the abdomen. The gutters were swabbed of all clots. Hemostasis was again confirmed at the site of the hysterotomy. Hemostasis was also confirmed on the rectus muscles and in the subfascial spaces. The fascia was closed with 0 Vicryl in a running stitch. The subcutaneous tissues were irrigated copiously and were reapproximated with 2 -0 chromic. The skin was closed with 4-0 Monocryl and covered with Steri- Strips. The uterus was evacuated of any additional blood and clots. The patient tolerated the procedure well. She was brought to the recovery room in good condition. She will continue on gentamicin and clindamycin for 24 hours. COMPLICATIONS: None. OUTCOME: Stable to PACU. /[id number]/MODL MTDD
--- NOTE | 2017-05-04 09:06 | POSTANESTH ---
Post Anesthetic Evaluation Cardiovascular Status: Normal, Stable, Similar to Pre-Op Cond Respiratory Status: Normal, Stable, Similar to Pre-op Cond. Level of Consciousness/Mental Status: Can Participate in Eval, Alert and Oriented Pain Control: Adequate, Prn Tx Ordered Nausea/Vomiting Control: Adequate, Prn Tx Ordered Complications Possibly Related to Anesthesia: None Noted Notes: POD 1 s/p C/S. Neuraxial block resolved. Able to ambulate. Back site c/d/i, no e/e/e. No MARRERO. Resting happily with healthy baby boy.
--- NOTE | 2017-05-04 13:09 | OBPP ---
Progress Note Assessment/Plan: Assessment: 31 yo s/p ltcs for arrest of descent, pod 1, doing well. Plan: Rh neg, but partner rh neg. Routine care, home on Tuesday. 05/04/17 13:08 Subjective: 31 yo s/p ltcs for arrest of descent, pod 1, doing well. Objective: 05/04/17 04:25 Patient ABO/Rh A NEGATIVE 05/02/17 14:02 Temp Pulse Resp BP Pulse Ox 37.1 C 101 H 18 107/72 90 L 05/04/17 02:46 05/04/17 06:30 05/04/17 02:46 05/04/17 02:46 05/04/17 06:30 Physical Exam - Physical Exam General Appearance: WD/WN Respiratory: lungs clear Cardiac/Chest: regular rate, rhythm Abdomen: non-tender Extremities: non-tender Skin: warm/dry Neuro/Psych: oriented x 3
[2017-05-04] MEDS: HYDROCODONE/APAP 5/325 TAB PO PRN ×2 (17:27→21:53)
[2017-05-04] MEDS: DOCUSATE SODIUM 100 MG CAP PO PRN (21:52)
[2017-05-05] MEDS: IBUPROFEN 600 MG TAB PO PRN ×4 (02:33→22:26)
[2017-05-05] MEDS: HYDROCODONE/APAP 5/325 TAB PO PRN ×6 (02:34→20:31)
--- NOTE | 2017-05-05 08:07 | OBPP ---
Progress Note Assessment/Plan: Assessment: 31 y.o. s/p primary C/S. POD #2. Recovering well with good pain control Plan: Routine / post-op care. Encourage ambulation and consult. 05/05/17 08:02 Subjective: Appears sleepy this morning. Reports good pain control and minimal vaginal bleeding. Eating and drinking well without nausea or vomiting. Ambulating without vertigo. Voiding without difficulty. Appropriate mood with good support system. Incision CDI. . Objective: 05/04/17 04:25 Patient ABO/Rh A NEGATIVE 05/02/17 14:02 Temp Pulse Resp BP Pulse Ox 36.9 C 76 16 98/58 L 93 05/05/17 01:15 05/05/17 01:15 05/05/17 01:15 05/05/17 01:15 05/05/17 01:15 Uterine Position/Fundal Height: Umbilicus -1 Uterine Tone: Firm Physical Exam - Physical Exam General Appearance: WD/WN, alert, no apparent distress EENT: normal ENT inspection Neck: non-tender, full range of motion, normal inspection Respiratory: lungs clear, normal breath sounds Cardiac/Chest: regular rate, rhythm Abdomen: non-tender, soft Extremities: normal range of motion, non-tender, normal inspection Back: Normal inspection Skin: normal color, warm/dry Neuro/Psych: alert, normal mood/affect, oriented x 3
[2017-05-05] MEDS ORDERED: D5W IV SCH (12:00)
[2017-05-05] MEDS ORDERED: GENTAMICIN SULFATE IV SCH (12:00)
[2017-05-05] MEDS: DOCUSATE SODIUM 100 MG CAP PO PRN (20:31)
[2017-05-06] MEDS: HYDROCODONE/APAP 5/325 TAB PO PRN ×4 (01:07→19:32)
[2017-05-06] MEDS: IBUPROFEN 600 MG TAB PO PRN ×3 (04:59→19:31)
--- NOTE | 2017-05-06 08:14 | OBPP ---
Progress Note Assessment/Plan: Assessment: 31 y.o. s/p primary C/S. POD #3. Recovering well with good pain control Plan: Routine / post-op care. Encourage ambulation and consult. Anticipate discharge to home tomorrow. 05/05/17 08:02 05/06/17 08:12 Subjective: Reports feeling well with good pain control and minimal vaginal bleeding. Incision CDI and healing well. with support. Started pumping. Eating and drinking well without nausea or vomiting. Ambulating well without vertigo. Discussed indication for C/S with patient and , Objective: 05/04/17 04:25 Patient ABO/Rh A NEGATIVE 05/02/17 14:02 Temp Pulse Resp BP Pulse Ox 36.7 C 81 16 106/72 96 05/05/17 19:32 05/05/17 19:32 05/05/17 19:32 05/05/17 19:32 05/05/17 19:32 Uterine Position/Fundal Height: Umbilicus -1 Uterine Tone: Firm Physical Exam - Physical Exam General Appearance: WD/WN, alert, no apparent distress EENT: normal ENT inspection Neck: non-tender, full range of motion, normal inspection Respiratory: lungs clear, normal breath sounds Cardiac/Chest: regular rate, rhythm Abdomen: normal bowel sounds, non-tender, soft Extremities: normal range of motion, non-tender, normal inspection Back: Normal inspection Skin: normal color, warm/dry Neuro/Psych: alert, normal mood/affect, oriented x 3
[2017-05-06] MEDS: DOCUSATE SODIUM 100 MG CAP PO PRN ×2 (08:37→19:31)
[2017-05-07] MEDS: IBUPROFEN 600 MG TAB PO PRN ×3 (01:33→13:04)
[2017-05-07] MEDS: HYDROCODONE/APAP 5/325 TAB PO PRN ×3 (01:34→13:03)
[2017-05-07 07:34] VITALS: BP 124/81; PULSE 90; RESP 16; TEMP 97.5; O2SAT 97
--- NOTE | 2017-05-07 10:04 | OBGCSDC ---
General Delivery Information - General Info : 1 Para: 1 Delivery Physician/CNM: Tracey Obrien Admission Date: 05/02/17 Labs: Patient ABO/Rh A NEGATIVE 05/02/17 14:02 Hct 35.3 % (38.0-47.0) L 05/04/17 04:25 Vaginal - Diagnosis Presentation at Delivery: Vertex (OP) - Operations/Procedures Non-surgical Procedures: Amniotomy L&D Analgesia/Anesthesia Type: Epidural - Delivery Number of Prior Sections: 0 Indications for Current Section: Arrest of Descent Type: Primary Non-surgical Procedures: Amniotomy Surgical Procedures: Unscheduled, Low Transverse Intra-op Complications: None L&D Analgesia/Anesthesia Type: Epidural [place] Data Joseph Delivery Date: 05/03/17 Delivery Time: 20:27 ALAYNA: 04/24/17 Gestational Age: 41 week(s) and 6 day(s) Sex of : Male Weight (gm): 3920 g Score (1 Min): 8 Score (5 Min): 9 Discharge Information - Discharge Information Discharge Medications: Iron, Ibuprofen, Oxycodone, Vitamins Condition: Good Instruction/Follow Up: Two Weeks, Four Weeks, Six Weeks Discharge Physician/CNM: Cass Horner
== END 2017-05-07 14:15 | disposition home or self-care (01) | DRG 765 ==
LOC: FLD 11:40 → FOB 05-03 23:44
PROVIDERS: ADMIT Obstetrics & Gynecology; ATTEND Obstetrics & Gynecology
DX: O41.03X0 Oligohydramnios, third trimester, not applicable or unspecified (principal); O41.1230 Chorioamnionitis, third trimester, not applicable or unspecified; O48.0 Post-term pregnancy; O32.8XX0 Maternal care for other malpresentation of fetus, not applicable or unspecified; O32.4XX0 Maternal care for high head at term, not applicable or unspecified; Z3A.41 41 weeks gestation of pregnancy; Z37.0 Single live birth
CPT/HCPCS: J0290; J1885; J2210; J2274; J2370; J2405; J2590; J3010; J3105; J3490

== ENCOUNTER → 2017-05-31 | Outpatient (CLI) | payer OTHER | LOC: FLACT 10:20 | PROVIDERS: ATTEND Obstetrics & Gynecology | DX: O92.79 Other disorders of lactation (principal) | CPT/HCPCS: G0463 ==

== ENCOUNTER → 2017-06-10 | Outpatient (CLI) | payer OTHER | LOC: FLACT 09:49 | PROVIDERS: ATTEND Obstetrics & Gynecology | DX: O92.29 Other disorders of breast associated with pregnancy and the puerperium (principal) | CPT/HCPCS: G0463 ==